=== PATIENT | female | born 1990 | race African-American/Black ===

== ENCOUNTER 2025-01-05 16:01 | Emergency (ER) | payer MEDICAID, SELFPAY ==
[2025-01-05 16:03] VITALS: BP 172/108; PULSE 84; RESP 18; TEMP 36.9; O2SAT 96; BMI 50.2
--- NOTE | 2025-01-05 16:16 | ED.VIS.FALL ---
HPI HPI - Fall History of Present Illness Chief Complaint: Fall Informant: patient Occured/Mechanism Occurred: Today Mechanism/Context: Yes same level fall and Yes slip Usually ambulates: Without assistance Pain/Injury Location: Right lower ribs and lower thoracic/upper lumbar spine Quality of Pain: Aching Worsened by: Sitting up Relieved by: Laying flat Associated Symptoms Associated Symptoms: Positive for Inability to ambulate; Negative for Parasthesias, Weakness, Loss of function, Loss of consciousness or Amnesia Narrative Narrative: Patient presents with back pain that began after a fall today. Patient states she slipped on the wet floor in her bathroom. Patient states she fell and hit her back on the edge of her bathtub. Patient thinks she hit her head but denies any loss of consciousness. Patient states she was having difficulty ambulating after the fall because of the pain. Patient denies any paresthesias or weakness. Patient states her pain is worse with sitting up. Patient states it is better with laying flat. Patient denies any radiation of the pain. Patient denies any bowel or bladder changes. Patient denies any saddle anesthesia. [facility] Medical History (Updated 01/05/25 @ 18:[address] Benjamín Naranjo, DO) Depression Bipolar 1 disorder Hypertension Fall Home Medications ?Medication ?Instructions ?Recorded ?Last Taken ?Type amlodipine 10 mg tablet 10 mg PO DAILY #30 tabs 01/05/25 Unknown Rx Allergy/AdvReac Type Severity Reaction Status Date / Time No Known Allergies Allergy Verified 01/05/25 16:03 Surgical History (Updated 01/05/25 @ 16:[address] Benjamín Naranjo, ) Hx of section Hx of cholecystectomy Social History (Updated 01/05/25 @ 16:[address] Benjamín Naranjo, DO) Smoking Status: Current every day smoker alcohol intake: current alcohol intake frequency: holidays/special occasions only substance use type: marijuana ROS ROS ED Constitutional Constitutional ED: Denies chills or fever(s) Eyes Eyes: Denies blurry vision or change in vision ENT ENT ED: Reports rhinorrhea; Denies sore throat Cardiovascular Cardiovascular: Denies chest pain or palpitations Respiratory/Chest Respiratory/Chest: Reports dyspnea; Denies cough Gastrointestinal Gastrointestinal: Denies nausea or vomiting Genitourinary Genitourinary ED: Denies dysuria or hematuria Musculoskeletal Musculoskeletal: Reports back pain; Denies neck pain Integumentary Denies abscess or rash Neurologic Neurologic: Denies headache(s) or weakness Allergic/Immunologic Allergic/Immunologic ED: Denies mouth swelling or urticaria EXAM Physical Exam Const Vital Signs: 01/05/25 16:03 01/05/25 16:57 Temperature 98.4 F Temperature Source Oral Pulse Rate 84 Respiratory Rate 18 Blood Pressure 172/108 H 193/130 H Blood Pressure Mean 129 151 Pulse Ox 96 Oxygen Delivery Method Room Air Positive well nourished and well developed General Appearance ED: well developed and NAD HEENT Reports normocephalic atraumatic Neck full ROM and supple Back/Spine Back/Spine Narrative: There is tenderness to palpation over the posterior right lower ribs, lower thoracic spine, upper lumbar spine. There is no bony crepitance or step-off. There is no subcutaneous emphysema palpated. Range of motion was limited in all motions of the thoracic and lumbar spine secondary to pain. Strength is 5/5 bilaterally in the lower extremities. There are no sensory deficits noted. Thoracic Spine / Upper Back: ROM limited Lumbar Spine / Lower Back: paraspinal muscle tenderness right L1 and L2 Neuro oriented x3, CN's II-XII intact bilaterally, moves all extremities, no focal motor deficits and no sensory deficits noted Blanca Coma Scale: document GCS findings Spontaneous Obeys Commands Oriented 15 Sensorium / Orientation: alert Motor Exam: strength 5/5 throughout Psych mental status grossly normal MDM MDM MDM Narrative Medical decision making narrative: Differential diagnosis includes rib fracture, contusion, muscle strain,, thoracic compression fracture, and lumbar compression fracture. X-rays of the lumbar spine will be obtained to assess for fracture. X-rays of the thoracic spine will be obtained to assess for fracture. X-rays of the right ribs will be obtained to assess for fracture. History & Record Review Additional record(s) reviewed:: No prior records Radiography Diagnostic Testing: Clinical Impression(s) from Imaging Studies Lumbar Spine X-Ray 01/05/25 17:04 IMPRESSION: No evidence of acute thoracolumbar spine fracture or malalignment. Multilevel spondylotic changes as described. Reading Location: [id number] Ribs w/Chest X-Ray 01/05/25 17:04 IMPRESSION: No acute cardiopulmonary disease. No acute fracture appreciated. Reading Location: [facility] Thoracic Spine X-Ray 01/05/25 17:04 IMPRESSION: No evidence of acute thoracolumbar spine fracture or malalignment. Multilevel spondylotic changes as described. Reading Location: [facility] X-rays of the right ribs were obtained. There are 3 views. On my independent interpretation, there is no rib fracture. There is no evidence of pneumothorax. Radiologist also interpreted the x-rays and agrees. X-rays of the thoracic spine were obtained. There are 3 views. On my independent interpretation, there is no acute fracture or spondylolisthesis. There are some degenerative changes noted. Radiologist also interpreted the x-rays and agrees. X-rays of the lumbar spine were obtained. There are 2 views. On my independent interpretation, there is no acute fracture or spondylolisthesis. There are some degenerative changes noted. Radiologist also interpreted the x-rays and agrees. Treatment and Re-Evaluation Narrative: Patient was given a dose of morphine. Patient was also given a dose of labetalol. Patient's blood pressure improved to 149/139. Patient was findings. Patient was instructed take Tylenol or ibuprofen as needed for pain. Patient was given a prescription for amlodipine. Patient was given a referral for primary care physician for follow-up care in 5 to 7 days. Patient was instructed to return if worse in any way. Patient understood and was agreeable with the plan. All questions were answered. Discharge Plan Triage Chief Complaint: Fall ED Provider: Benjamín Naranjo Dx/Rx/DC Orders Clinical Impression: Contusion of rib on right side, Hypertension, Fall Instructions: ED High Blood Pressure Hypertension, ED Bruise, Rib Prescriptions: New amlodipine 10 mg tablet 10 mg PO DAILY Qty: 30 0RF Primary Care Provider: Care Physician,No Primary Referrals: Cody Palmer MD [Med Staff - [employer]] - 3-5 Days NOT,DEFINED [Non-Staff] - Print Language: Luxembourger Disposition Disposition: Home, Self Care
[2025-01-05 16:57] VITALS: BP 193/130
--- OUTSIDE RECORDS SUMMARY | 2025-01-05 16:59 | XMS RPT_ITS | CCD ---
Author Organization [place] [employer] [facility] Care Team Providers Care Photographic Process Screen Maker Name Role Phone JUAN FRANCISCO HALL DO Admitting Unavailable JUAN FRANCISCO HALL DO Attending Unavailable JUAN FRANCISCO HALL DO Primary Care Unavailable YUNIELERERARNOLDO [employer] DIRECTOR Consulting Unavailable UNGERER, ARNOLDO [employer] DIRECTOR Referring Unavailable PROVIDER, UNKNOWN Consulting Unavailable DELIA MARES MD Admitting Unavailable DELIA MARES MD Attending Unavailable DELIA MARES MD Primary Care Unavailable UNGERER, ARNOLDO [employer] DIRECTOR Consulting Unavailable UNGERER, ARNOLDO [employer] DIRECTOR Referring Unavailable PROVIDER, UNKNOWN Consulting Unavailable UNGERER, ARNOLDO [employer] DIRECTOR Admitting Unavailable UNGERER, ARNOLDO [employer] DIRECTOR Attending Unavailable UNGERERARNOLDO [employer] DIRECTOR Primary Care Unavailable UNGERER, ARNOLDO [employer] DIRECTOR Consulting Unavailable PROVIDER, UNKNOWN Consulting Unavailable Problems Problem Classification Problem Date Documented Da te Episodic/Chronic Other screening for suspected conditions (not mental disorders or infectious disease) (1 source) Encounter for screening for malignant neoplasm of vagina; Translations: [Encounter for screening for malignant neoplasm of vagina] Onset: 11-15-2023 Episodic Results Test Name Value Interpretation Reference Range Facility CBC + DIFFon 05-28-2024 Baso # 0.00 x10EE3/UL Normal 0.00 - 0.10 [facility] Comment on above: Performed By: #### 2 [id number] #### [place] [id number] Basophils/100 WBC (Bld) 0.1 % Normal 0.0 - 2.0 [facility] Comment on above: Performed By: #### 2 39405 #### [place] [address] CBC + DIFF Normal [facility] Comment on above: Result Comment: CBC- COMPLETE BLOOD COUNT Performed By: #### 2 90763 #### [facility],[address] [place] [address] EO # 0.04 x10EE3/UL Normal 0.00 - 0.50 [facility] Comment on above: Performed By: #### 2 54049 #### [facility],[address] [place] [address] Eosinophils/100 WBC (Bld) 0.8 % Normal 0.0 - 7.0 [facility] Comment on above: Performed By: #### 2 10969 #### [facility],[address] [place] [address] Erythrocyte distribution width (RBC) [Ratio] 16.0 % High 12.0 - 15.6 [facility] Comment on above: Performed By: #### 2 27444 #### [facility],[address] [place] [address] Hematocrit (Bld) [Volume fraction] 35.3 % Normal 34.0 - 46.0 [facility] Comment on above: Performed By: #### 2 90273 #### [facility],[address] [place], [place] [id number] Hemoglobin (Bld) [Mass/Vol] 11.0 g/dL Low 12.0 - 16.0 [facility] Comment on above: Performed By: #### 2 98240 #### [facility],[address] [place] [address]10 Lymph # 1.86 x10EE3/UL Normal 0.80 - 2.80 [facility] Comment on above: Performed By: #### 2 40307 #### [facility],[address] [place], [place] [id number] Lymphocytes/100 WBC (Bld) 37.3 % Normal 20.0 - 45.0 [facility] Comment on above: Performed By: #### 2 86349 #### [facility],[address] [place] [address] MANUAL DIFF N/A Normal [facility] Comment on above: Performed By: #### 2 17048 #### [facility],[address] [place] [address] MCH (RBC) [Entitic mass] 23 pg Low 27 - 33 [facility] Comment on above: Performed By: #### 2 95120 #### [facility],[address] [place] [address] MCHC 31 X10 3 Low 32 - 36 [facility] Comment on above: Performed By: #### 2 48271 #### [facility],[address] [place] [address] MCV (RBC) [Entitic vol] 73 fL Low 80 - 99 [facility] Comment on above: Performed By: #### 2 67928 #### [facility],[address] [place] [address] Creek # 0.23 x10EE3/UL Normal 0.20 - 1.00 [facility] Comment on above: Performed By: #### 2 13588 #### [facility],[address] [place] [address] MONOS % 4.7 % Normal 0.0 - 10.0 [facility] Comment on above: Performed By: #### 2 18408 #### [facility],[address] [place] [address] Morphology Osbaldo (Bld) [Interp] N/A Normal [facility] Comment on above: Performed By: #### 2 03969 #### [facility],[address] [place] [address] Neut # 2.85 x10EE3/UL Normal 1.50 - 7.10 [facility] Comment on above: Performed By: #### 2 44910 #### [facility],[address] [place], [place] [id number] Neutrophils/100 WBC (Bld) 57.1 % Normal 46.0 - 76.0 [facility] Comment on above: Performed By: #### 2 27647 #### [facility],[address] [place] [address]4797 PLATELET 275 x10EE3/UL Normal 150 - 450 [facility] Comment on above: Performed By: #### 2 74899 #### [facility],[address] [place] [address]00 Platelet mean volume (Bld) [Entitic vol] 8.5 fL Normal 6.6 - 10.5 [facility] Comment on above: Result Comment: AUTO MATED DIFFERENTIAL Performed By: #### 2 92618 #### [facility],[address] [place] [address] 45587 RBC 4.86 x 10EE6/UL Normal 4.10 - 5.30 [facility] Comment on above: Performed By: #### 2 14523 #### [facility],[address] [place] [address]53 WBC 5.0 x 10EE3/UL Normal 4.5 - 10.8 [facility] Comment on above: Performed By: #### 2 59611 #### [facility],[address] [place] [address] 28355 CMP with eGFRon 05-28-2024 AGE 33 years Normal [facility] Comment on above: Performed By: #### 2 44335 ####[facility],[address] [place] [address] 60446 Albumin [Mass/Vol] 3.7 g/dL Normal 3.4 - 5.0 [facility] Comment on above: Performed By: #### 2 40420 ####[facility],[address] [place] [address] 52932 Albumin/Globulin [Mass ratio] 0.9 {ratio} Normal 0.9 - 1.6 [facility] Comment on above: Performed By: #### 2 01697 ####[facility],[address] [place] [address] 22414 ALK PHOS 65 U/L Normal 46 - 116 [facility] Comment on above: Performed By: #### 2 63230 ####[facility],[address] [place] [address] 87287 ALT [Catalytic activity/Vol] 14 U/L Low 16 - 63 [facility] Comment on above: Performed By: #### 2 54933 ####[facility],[address] [place] [address] 20706 Anion gap [Moles/Vol] 11 mmol/L Normal 10 - 20 [facility] Comment on above: Performed By: #### 2 65051 ####[facility],[address] [place] [address] 49772 AST [Catalytic activity/Vol] 26 U/L Normal 13 - 39 [facility] Comment on above: Performed By: #### 2 76682 ####[facility],[address] [place] [address] 35781 B/C RATIO 6 ratio Normal 0 - 30 [facility] Comment on above: Performed By: #### 2 25687 ####[facility],[address] [place] [address] 96070 Bilirubin [Mass/Vol] 0.9 mg/dL Normal 0.2 - 1.0 [facility] Comment on above: Performed By: #### 2 47976 ####[facility],[address] [place] [address] 51622 Calcium [Mass/Vol] 8.8 mg/dL Normal 8.5 - 10.1 [facility] Comment on above: Performed By: #### 2 99919 ####[facility],[address] [place] [address] 02479 Chloride [Moles/Vol] 103 mmol/L Normal 98 - 107 [facility] Comment on above: Performed By: #### 2 23860 ####[facility],[address] [place] [address] 00086 CMP with eGFR Normal [facility] Comment on above: Result Comment: COMP REHENSIVE METABOLIC PANEL Performed By: #### 2 17562 ####[facility],[address] [place] [address] 59086 CO2 [Moles/Vol] 25.1 mmol/L Normal 21.0 - 32.0 [facility] Comment on above: Performed By: #### 2 96882 ####[facility],[address] [place] [address] 52501 Creatinine [Mass/Vol] 1.06 mg/dL High 0.55 - 1.02 [facility] Comment on above: Performed By: #### 2 73279 ####[facility],[address] [place] [address] 73188 eGFR 59 ML/MINUTE Low 60 - 999 [facility] Comment on above: Performed By: #### 2 81033 ####[facility],[address] [place] [address] 87861 GFR/1.73 sq M.predicted among non-blacks MDRD (S/P/Bld) [Vol rate/Area] mL/min/{1.73_m2} Normal 60 - 999 [facility] Comment on above: Result Comment: ACCO RDING TO THE NATIONAL KIDNEY DISEASE EDUCATION PROGRAM(NKDE), A NORMAL eGFR IS A VALUE GREATER THAN OR EQUAL TO 60 ML/MIN/1.73 SQ METERS. CHRONIC KIDNEY DISEASE: <60mL/MIN/1.73 SQ METERS KIDNEY FAILURE: <15mL/MIN/1.73 SQ METERS THIS TEST SHOULD ONLY BE USED FOR PATIENTS 18 YEARS OF AGE AND OLDER. Performed By: #### 2 41736 ####[facility],[address] [place] [address] 43680 Globulin (S) [Mass/Vol] 4.0 g/dL High 1.5 - 3.8 [facility] Comment on above: Performed By: #### 2 91378 ####[facility],[address] [place] [address] 04772 Glucose [Mass/Vol] 100 mg/dL Normal 74 - 106 [facility] Comment on above: Performed By: #### 2 67656 ####[facility],[address] [place] [address] 26079 Potassium [Moles/Vol] 3.5 mmol/L Normal 3.5 - 5.1 [facility] Comment on above: Performed By: #### 2 64180 ####[facility],[address] [place] [address] 85785 Protein [Mass/Vol] 7.7 g/dL Normal 6.4 - 8.2 [facility] Comment on above: Performed By: #### 2 70421 ####[facility],[address] [place] [address] 41293 Sodium [Moles/Vol] 136 mmol/L Normal 136 - 145 [facility] Comment on above: Performed By: #### 2 34084 ####[facility],[address] [place] [address] 81836 Urea nitrogen [Mass/Vol] 6 mg/dL Low 7 - 18 [facility] Comment on above: Performed By: #### 2 43184 ####[facility],[address] [place] [address] 08151 ED MED ADMINISTRATION DETAIL on 05-28-2024 ED MED ADMINISTRATION DETAIL Alcohol Still Operator Medication Administration Record [address] [address] [id number] 05/28/2024 [id number] Sex[facility] Female : 1990 Age: 33y MEASUREMENTS: Wt: 152.0 kg, Ht/[place]: 65.0 in, BMI: 55.75 ALLERGIES: No known drug allergies Medication Ordered Medication Administration Date/Time Pantoprazole 09:59 05/28 Pantoprazole (Protonix) IVP 40 mg given via Site# 1. Given (Protonix) IVP 40 Allergies verified and confirmed 5 rights. IV patency established. IV 09:59 05/28/2024 mg (NOW x1) site checked: no pain, redness, or swelling. IV flushed thoroughly Sandra Funez R.N. pre-medication administration. IVP given by nurse. Information Scanned reviewed with patient including reason for taking this medication. - 10:00 Sandra Funez R.N. 1 of 1 Normal [facility] ED NURSES CLINICAL NOTEon ED NURSES CLINICAL NOTE Nurse Narrative Nurse Clinical Narrative [facility] [address] [place] [address] [id number] 05/28/2024 Patient: YOSEF ZARAGOZA Sex: Female : 1990 Age: 33y Disposition: Discharge to Home Disposition Decision Time: 11:38 05/28/2024 Departure Time: 12:03 05/28/2024 TRIAGE Arrived by private vehicle. Historian: patient. Primary physician (Sissy). Triage time: 08:56 05/28/2024. Acuity: LEVEL 3. Chief Complaint: ABDOMINAL PAIN, NAUSEA and DIARRHEA and URINARY FREQUENCY and FLANK PAIN. Onset. (4 days ago). ( Pt was taking a shower and felt like she pulled something in her lower right back. It has wrapped around to the front now.). SEPSIS SCREEN: NEGATIVE. SIRS criteria negative. No possible sources of infection. -- 09:05/28/24 CHARLES Funez R.N. 09:03 05/28/24. BP: 159/100 MAP: 120. HR: 90. RR: 18. O2 saturation: 98% Temperature: 98.5 F. Pain level now 11/28. -- 09:05/28/24 CHARLES Funez R.N. Measurements: 09:05/28/24 Wt: 152.0 kg, Ht/[place]: 65.0 in, BMI: 55.75 -- 09:05/28/24 CHARLES Funez R.N. Medications: escitalopram 20 mg tablet: 1 tablet once a day. -- 09:05/28/24 CHARLES Funez R.N. gabapentin 400 mg capsule -- 09:07 05/28/24 CHARLES Funez R.N. 1 of 4 Nurse Narrative MELATONIN 5MG TAB: TAKE 1/2 TO 2 TABLETS BY MOUTH AT BEDTIME NEEDED FOR SLEEP. -- 09:07 05/28/24 CHARLES Funez R.N.Updated through eRx -- 09:05/28/24 CHARLES Funez R.N. trazodone 50 mg tablet -- 09:07 05/28/24 CHARLES Funez R.N.Updated through eRx -- 09:05/28/24 CHARLES Funez R.N. MELATONIN 5MG TAB: 1 tablet every night as needed. -- 09:05/28/24 CHARLES Funez R.N. trazodone 50 mg tablet: 1 tablet every night as needed. -- 09:09 05/28/24 CHARLES Funez R.N. Allergies: no known drug allergies -- 08:58 05/28/24 CHARLES Funez R.N. Problems: Depression -- 08:59 05/28/24 CHARLES Funez R.N. Anxiety disorder -- 08:59 05/28/24 CHARLES Funez R.N. ADDITIONAL SURGERIES: -- 08:59 05/28/24 CHARLES Funez R.N. Cholecystectomy -- 09:00 05/28/24 CHARLES Funez R.N. History 08:56 05/28/24. PAST MEDICAL HX: Last normal menstrual period- May 04. SOCIAL HX: Heavy tobacco smoker (cigarette)- 1-2 packs per day. Occasional alcohol use. Occasional drug use: marijuana. The patient has not traveled outside the [place] Infectious disease exposure: No infectious disease exposure. ABUSE ASSESSMENT: The patient answered yes to the question(s) Do you feel safe in your home? and no to the question(s) Are you afraid to go home?. SELF HARM ASSESSMENT: Self harm assessment was performed. The patient answered no to the question(s) Have you recently felt down, depressed, or hopeless? and Do you have thoughts of harming or killing yourself?. FALL RISK ASSESSMENT: Fall risk assessment completed. No risk factors identified. -- :03 05/28/24 CHARLES Funez R.N. 2 of 4 Nurse Narrative Interventions 08:56 05/28/24. Advanced care plan discussed with patient. Patient does not have advanced directive. -- 09:03 05/28/24 CHARLES Funez R.N. PHYSICAL ASSESSMENT 09:32 05/28/24. Ambulatory to room. ( Pt states she was taking a shower 4 days ago and pulled something in her back, now it has wrapped around her right flank area. Pt is tender to palpation.). GENERAL / NEURO / PSYCH: Alert. Oriented X 4. RESPIRATORY: Respirations not labored. CVS: Normal sinus rhythm noted. GI / : The patient has had nausea and diarrhea. Abdominal tenderness. Guarding present in the right side of the abdomen and right lower quadrant (flank into her back). -- 09:47 05/28/24 CHARLES Funez R.N. NURSING PROGRESS NOTES 09:22 05/28/24. Call light placed in reach. Side rails up x 2. Bed placed in lowest position. Brakes of bed on. -- 09:47 05/28/24 CHARELS Funez R.N. 09:35 05/28/24. Site #1 started via IV in the right antecubital space with a 20g angiocath with aseptic technique and good blood return; 1 attempt. Blood drawn: rainbow set tube(s). Labeled in the presence of the patient and sent to the lab. Saline lock flushed with 5 mL saline. -- 09:44 05/28/24 CHARLES Funez R.N. 09:59 05/28/24. Pantoprazole (Protonix) IVP 40 mg given via Site# 1. Allergies verified and confirmed 5 rights. IV patency established. IV site checked: no pain, redness, or swelling. IV flushed thoroughly pre-medication administration. IVP given by nurse. Information reviewed with patient including reason for taking this medication. -- 10:00 05/28/24 CHARLES Funez R.N. 10:02 05/28/24. The patient reports no complaints and the patient is calm and resting quietly. -- 10:27 05/28/24 CHARLES Funez R.N. 10:18 05/28/24. PO Challenge performed with water (so patient can try to provide a urine). -- 10:24 05/28/24 (more content not included)... Normal [facility] ED ORDER SHEET (CPOE ONLY)on 05-28-2024 ED ORDER SHEET (CPOE ONLY) Order Sheet Order Sheet [facility] [address] [place] [address] [id number] 05/28/2024 Patient: YOSEF ZARAGOZA Sex: Female : 1990 Age: 33y MEASUREMENTS: Wt: 152.0 kg, Ht/[place]: 65.0 in, BMI: 55.75 ALLERGIES: No known drug allergies MEDICATION/IV/DRIP/FL UID ORDERS Order Description Priority Entered Acknowledged Completed Pantoprazole (Protonix) IVP40 09:18 05/28/2024 09:43 10:00 mg (NOW x1) Delia Mares M.D. 05/28/2024 05/28/2024 Sandra Sun, Navya.Isabella. R.N. LAB ORDERS Order Description Priority Entered Acknowledged Collected Completed CBC w Diff Stat Stat 09:16 05/28/2024 09:17 05/28/2024 09:17 05/28/2024 Sandra Zhang Natalie [place]oder, M.D. R.N. R.N. CMP Stat Stat 09:16 05/28/2024 09:17 05/28/2024 09:17 05/28/2024 Sandra Zhang Natalie [place], M.D. R.N. R.N. Lipase Stat Stat 09:16 05/28/2024 09:17 05/28/2024 09:17 05/28/2024 Sandra Zhang Natalie Yoder, 1 of 2 Order Sheet Juarez Gallego. R.N. EKG - ED Stat Stat 09:16 05/28/2024 09:17 05/28/2024 09:17 05/28/2024 Sandra Zhang Natalie [place], M.D. R.NRaquel RRaquelN. Urinalysis Stat Stat 09:16 05/28/2024 09:17 05/28/2024 09:17 05/28/2024 Sandra Zhang Natalie [place]oder, M.D. R.N. RRaquelN. Urine - HCG Stat 09:16 05/28/2024 09:17 05/28/2024 09:17 05/28/2024 Stat Sandra Zhang Natalie [place], M.D. R.NRaquel RRaquelNRaquel DIAGNOSTIC STUDY ORDERS Order Description Priority Entered Acknowledged Completed STAFF ORDERS Order Description Priority Entered Acknowledged Collected Completed IV Saline Lock 09:18 05/28/2024 09:43 05/28/2024 10:03 05/28/2024 Sandra Zhang Natalie [place], M.D. R.N. RRaquelNRaquel [Electronically signed by Delia Mares M.D. (05/28/2024 11:51 EST)] 2 of 2 Normal [facility] ED PHYSICIAN CLINICAL REPORT on 05-28-2024 ED PHYSICIAN CLINICAL REPORT Narrative Physician Clinical Narrative [address] [address] [id number] 05/28/2024 Patient: YOSEF ZARAGOZA Sex: Female : 1990 Age: 33y Measurements Wt: 152.0 kg, Ht/[place]: 65.0 in, BMI: 55.75 Initial Vital Sign Measured Time BP MAP HR RR O2Sat ETCO2 Temp Pain GCS RTS 09:03 05/28/2024 159/100 120 90 18 98% 98.5 F 7 Time Seen: 08:56 05/28/2024. Arrived- By private vehicle. Historian- patient. HISTORY OF PRESENT ILLNESS Chief Complaint: ABDOMINAL PAIN and FLANK PAIN. (Patient has started having pain a couple of days ago.). No nausea, loss of appetite, vomiting or diarrhea. (She noticed pain when she was showering. She thinks she may have just moved wrong. It started in the right back flank area but now it is coming around to the front in the epigastric area. A couple of days ago she went to a event where she used crank. She also smoked a blunt prior to coming in today. She has some slight nausea. She states it hurts when she stands twists or bends. No urinary symptoms. No fever. She has had her gallbladder out. She denies any chest pain or shortness of breath. Has not had a cough. She is eating and drinking without difficulty.). REVIEW OF SYSTEMS RESPIRATORY: No difficulty breathing. CVS: No chest pain. THROAT: No sore throat. NEUROLOGICAL: No headache. CONSTITUTIONAL: No fever or chills. : No pain with urination or urinary frequency. Denies current . GI: No constipation. 1 of 11 Narrative PAST HISTORY See nurses notes. Anxiety disorder Depression Surgeries: Cholecystectomy Medications: escitalopram 20 mg tablet: 1 tablet once a day. gabapentin 400 mg capsule MELATONIN 5MG TAB: 1 tablet every night as needed. trazodone 50 mg tablet: 1 tablet every night as needed. Allergies: no known drug allergies SOCIAL HISTORY Smoker- current status unknown. Alcohol use. Drug use. ADDITIONAL NOTES The nursing notes have been reviewed. PHYSICAL EXAM Vital Signs: Have been reviewed. Appearance: Alert. No acute distress. Eyes: Pupils equal, round and reactive to light. Eyes normal inspection. ENT: Ears normal. Nose normal. Neck: Normal inspection. CVS: Normal heart rate. Heart sounds normal. Respiratory: No respiratory distress. Painless inspiration. Breath sounds normal. Chest nontender. Abdomen: Soft. Tenderness (Mild tenderness epigastric area). No organomegaly. No mass. Obese. 2 of 11 Narrative Back: Normal inspection. (she has some tenderness in the right back to extremely light touch. There is no rash noted). Skin: Skin warm. Normal skin color. Extremities: Extremities exhibit normal ROM. No lower extremity edema. Neuro: Oriented X 3. No motor deficit. No sensory deficit. LABS, X-RAYS, AND EKG 12-LEAD EKG: No acute ischemia. Prolonged QT. The EKG appears to be a good tracing. Laboratory Tests: CBC + DIFF Final KINGS: 05/28/2024 09:25:00 EST MsgRcvd: 05/28/2024 09:43 EST Lab Test Result Reference Status Received Comments 05/28/2024 09:43 CBC-COMPLETE CBC + DIFF Final EST BLOOD COUNT 05/28/2024 09:43 WBC 5.0 x 10/UL 4.5 - 10.8 Final EST 05/28/2024 09:43 RBC 4.86 x 10/UL 4.10 - 5.30 Final EST 11.0 g/dl 05/28/2024 09:43 HEMOGLOBIN 12.0 - 16.0 Final Below low normal EST 05/28/2024 09:43 HEMATOCRIT 35.3 % 34.0 - 46.0 Final EST 73 fl 05/28/2024 09:43 MCV 80 - 99 Final Below low normal EST 23 pg 05/28/2024 09:43 MCH 27 - 33 Final Below low normal EST 31 X10 3 05/28/2024 09:43 MCHC 32 - 36 Final Below low normal EST 3 of 11 Narrative 16.0 % 05/28/2024 09:43 RDW/CV 12.0 - 15.6 Final Above high normal EST 05/28/2024 09:43 PLATELET 275 x10/UL 150 - 450 Final EST 05/28/2024 09:43 AUTOMATED MPV 8.5 fl 6.6 - 10.5 Final EST DIFFERENTIAL 05/28/2024 09:43 NEUT % 57.1 % 46.0 - 76.0 Final EST 05/28/2024 09:43 LYMPH % 37.3 % 20.0 - 45.0 Final EST 05/28/2024 09:43 MONOS % 4.7 % 0.0 - 10.0 Final EST 05/28/2024 09:43 EO % 0.8 % 0.0 - 7.0 Final EST 05/28/2024 09:43 BASO % 0.1 % 0.0 - 2.0 Final EST 05/28/2024 09:43 Lymph # 1.86 x10/UL 0.80 - 2.80 Final EST 05/28/2024 09:43 Neut # 2.85 x10/UL 1.50 - 7.10 Final EST 05/28/2024 09:43 Creek # 0.23 x10/UL 0.20 - 1.00 Final EST 05/28/2024 09:43 EO # 0.04 x10/UL 0.00 - 0.50 Final EST 05/28/2024 09:43 Baso # 0.00 x10/UL 0.00 - 0.10 Final EST 05/28/2024 09:43 MANUAL DIFF N/A New Order EST 4 of 11 Narrative 05/28/2024 09:43 MORPHOLOGY N/A New Order EST CMP with eGFR Final KINGS: 05/28/2024 09:25:00 EST MsgRcvd: 05/28/2024 10:17 EST Lab Test Result Reference Status Received Comments COMPREHENSIVE 05/28/2024 CMP with eGFR Final METABOLIC 10:17 EST PANEL 05/28/2024 (more content not included)... Normal [facility] ED SUPER BILLon 05-28-2024 ED SUPER BILL [address] [address] [id number] 05/28/2024 Patient: YOSEF ZARAGOZA Sex: Female : 1990 Age: 33y Item Facility Professional Category Description Code Code Quantity Fee Total Nurse/E/M EMERGENCY 121250 1 $0.00 $0.00 DEPARTMENT VISIT HIGH/URGENT SEVERITY (67714-61) Nurse/IV/IM/Infusions IVP initial 918334 1 $0.00 $0.00 (62226) Grand Total $0.00 Providers Delia Mares M.D. Chief Complaint ABDOMINAL PAIN and FLANK PAIN. Principal Diagnosis Abdominal pain. Epigastric abdominal pain of unknown cause. 1 of 2 [facility] Hypertension. hypertension. ICD-10 Codes R10.9: Unspecified abdominal pain R10.13: Epigastric pain I10: Essential (primary) hypertension 2 of 2 Normal [facility] ED VISIT SUMMARYon ED VISIT SUMMARY Visit Overview Visit Overview [address] [address] [id number] 05/28/2024 Patient: YOSEF ZARAGOZA Sex: Female : 1990 Age: 33y 05/28/2024 12:07 PM EST ED Arrival:08:54 05/28/2024 EST Status:not Recent Travel:no Language:eng Adv Directive:No Isolation Status: Ethnicity:N Fall Risk:no risk Infectious Disease Exposure:no Measurements:5'5 / 165.1 Self-Harm Status:risk Sepsis Screen:negative cm 335.0 lb / 152.0 kg Chief Complaint:ABDOMINAL PAIN, DIARRHEA, FLANK PAIN, NAUSEA, URINARY FREQUENCY, (4 days ago), (Pt was taking a shower and felt like she pulled something in her lower right back. It has wrapped around to the front now. ), and (Ungerer) ALLERGIES No Known Drug Allergies HOME MEDICATIONS escitalopram 20 mg tablet: 1 tablet once a day. 1 of 3 Visit Overview gabapentin 400 mg capsule MELATONIN 5MG TAB: 1 tablet every night as needed. trazodone 50 mg tablet: 1 tablet every night as needed. PAST MEDICAL HISTORY / PROBLEMS Anxiety disorder Depression Last normal menstrual period- May 04 See nurses notes PAST SURGICAL HISTORY Cholecystectomy SOCIAL HISTORY Smoking status: Yes Alcohol use: Yes Drug use: Yes ED COURSE MEDICATIONS GIVEN IN EMERGENCY DEPARTMENT 09:59 05/28/24 Pantoprazole (Protonix) IVP 40 mg IV SITE INFORMATION INTAKE OUTPUT REASSESMENT (most recent) 10:02 05/28/24. The patient reports no complaints and the patient is calm and resting quietly. VITAL SIGNS First Vitals Last Vitals Temp 09:03 05/28/24 98.5 F Temp 09:03 05/28/24 98.5 F 2 of 3 Visit Overview First Vitals Last Vitals BP 09:03 05/28/24 159/100 BP 09:03 05/28/24 159/100 HR 09:03 05/28/24 90 HR 09:03 05/28/24 90 RR 09:03 05/28/24 18 RR 09:03 05/28/24 18 O2 Sat 09:03 05/28/24 98% O2 Sat 09:03 05/28/24 98% Pain 09:03 05/28/24 7 Pain 09:03 05/28/24 7 ETCO2 09:03 05/28/24 ETCO2 09:03 05/28/24 GCS 09:03 05/28/24 GCS 09:03 05/28/24 RTS 09:03 05/28/24 RTS 09:03 05/28/24 PROCEDURES NURSING INTERVENTIONS LABS / STUDIES LABS / STUDIES ORDERED CBC w Diff CMP EKG - ED Lipase Urinalysis Urine - HCG CLINICAL IMPRESSION ABDOMINAL PAIN EPIGASTRIC ABDOMINAL PAIN OF UNKNOWN CAUSE HYPERTENSION POSSIBLE ACUTE GASTRITIS 3 of 3 Normal [facility] ED VITALS FLOW SHEETon 05-28 ED VITALS FLOW SHEET Vit[place] [address] [phone] 05/28/2024 Patient: YOSEF ZARAGOZA Sex: Female : 1990 Age: 33y Measurements Wt: 152.0 kg, Ht/[place]: 65.0 in, BMI: 55.75 Measured Time BP MAP HR RR O2Sat ETCO2 Temp Pain GCS RTS 09:03 05/28/2024 159/100 120 90 18 98% 98.5 F 7 1 of 1 Normal [facility] LIPASEon 05-28-2024 Lipase [Catalytic activity/Vol] 46.0 U/L Normal 15.0 - 78.0 [facility] Comment on above: Result Comment: *PLE ASE NOTE THAT RANGES FOR LIPASE HAVE CHANGED OF 05/19/23 DUE TO AN ASSAY UPDATE BY THE LIQUOR DEPARTMENT MANAGER.THE NEW ASSAY RANGE IS 6-250 U/L, WITH A REFERENCE RANGE OF 16-77 U/L. Performed By: #### 2 [id number] #### [facility],[address] [place], [place] [id number] URINEon 05-28-2024 Beta HCG ( test) Ql (U) Negative Normal NEGATIVE [facility] Comment on above: Performed By: #### 2 70117 ####[facility],[address] [place], [place] [phone] EXTERNAL QC DONE? YES Normal [facility] Comment on above: Performed By: #### 2 85067 ####[facility],[address] [place] [address] INTERNAL QC PASS Normal [facility] Comment on above: Performed By: #### 2 39530 ####[facility],[address] [place] [address] URINALYSISon 05-28-2024 Amorphous NONE Normal [facility] Comment on above: Performed By: #### 2 37163 ####[facility],[address] [place] [address] Bacteria 1+ Normal [facility] Comment on above: Performed By: #### 2 79984 ####[facility],[address] [place] [address] Bilirubin Ql (U) Negative Normal NORMAL: NEGATIVE [facility] Comment on above: Performed By: #### 2 88064 ####[facility],[address] [place] [address]71 Casts NONE Normal [facility] Comment on above: Performed By: #### 2 98866 ####[facility],[address] [place], [place] [id number] Clarity (U) clear Normal NORMAL: CLEAR [facility] Comment on above: Performed By: #### 2 62492 ####[facility],[address] [place] [address] Color (U) airam Normal NORMAL: YELLOW [facility] Comment on above: Performed By: #### 2 04751 ####[facility],[address] [place] [address] Crystals LM Nom (Urine sed) NONE Normal [facility] Comment on above: Performed By: #### 2 37784 ####[facility],[address] [place] [address] Epi Cells NONE Normal [facility] Comment on above: Performed By: #### 2 99228 ####[facility],[address] [place] [address]16 Glucose Ql (U) NORM Normal NORMAL: NORMAL [facility] Comment on above: Performed By: #### 2 96254 ####[facility],[address] [place] [address]873 Hemoglobin Ql (U) 10 Abnormal NORMAL: NEGATIVE [facility] Comment on above: Performed By: #### 2 15227 ####[facility],[address] [place] [address] 23246 Ketone 50 Abnormal NORMAL: NEGATIVE [facility] Comment on above: Performed By: #### 2 92324 ####[facility],[address] [place] [address] Leukocytes 25 Abnormal NORMAL: NEGATIVE [facility] Comment on above: Performed By: #### 2 73516 ####[facility],[address] [place] [address] Mucous 3+ Normal [facility] Comment on above: Performed By: #### 2 27928 ####[facility],[address] [place] [address] Nitrite Ql (U) Negative Normal NORMAL: NEGATIVE [facility] Comment on above: Performed By: #### 2 21576 ####[facility],[address] [place] [address] pH (U) 5 [pH] Normal NORMAL: 5.0-8.0 [facility] Comment on above: Performed By: #### 2 68467 ####[facility],[address] [place] [address] Protein Ql (U) 30 Abnormal NORMAL: NEGATIVE [facility] Comment on above: Performed By: #### 2 99295 ####[facility],[address] [place] [address] Rbc 0-5 Normal 0-3/hpf [facility] Comment on above: Performed By: #### 2 99373 ####[facility],[address] [place], [place] [id number] Sp [place] 1.025 Normal NORMAL: 1.010-1.030 [facility] Comment on above: Performed By: #### 2 26433 ####[facility],[address] [place] [address] Specimen Type R Normal [facility] Comment on above: Performed By: #### 2 17534 ####[facility],[address] [place] [address] Urinalysis dipstick W Reflex Microscopic panel (U) SEE BELOW Normal [facility] Comment on above: Result Comment: MICR OSCOPIC Performed By: #### 2 53789 ####[facility],[address] [place] [address] Urobilinog 4 Abnormal NORMAL: NORMAL [facility] Comment on above: Performed By: #### 2 31000 ####[facility],[address] [place] [address] Wbc 1-5 Normal 0-5/hpf [facility] Comment on above: Performed By: #### 2 53276 ####[facility],[address] [place] [address] Yeast NONE Normal [facility] Comment on above: Performed By: #### 2 64082 ####[facility],[address] [place] [address] FOOT COMPLETE LTon 4 FOOT COMPLETE LT [place] [address] Patient: YOSEF ZARAGOZA Phone#: : 1990 Age: 33 Gender: F Pt. Type: ER Account: [id number] Location: [facility] Ordering: JUAN FRANCISCO HALL Exam Date: 12/17/2023/21:14 Family Phys: ARNOLDO MEJIASNavya Charge Code: [id number] Physician: [place] Order #: [id number] Dose#: PROCEDURE: X-RAY FOOT LT COMPLETE MIN 3 VIEWS COMPARISON: None. INDICATIONS: Foot injury. FINDINGS: BONES: No significant arthropathy or acute abnormality. A small calcaneal spur is present. SOFT TISSUES: Negative. No visible soft tissue swelling. EFFUSION: None visible. OTHER: Negative. CONCLUSION: No acute disease. Dictated by: Janna Viveros MD on 12/18/2023 at 9:59 Approved by: Janna Viveros MD on 12/18/2023 at 9:59 Normal [facility] Outdoor Guide Cytology Reporton 2023 Outdoor Guide Cytology Report . Pathology Reports Accession: Collected Date/Time: Received Date/Time: Pathologist: [id number] 11/15/2023 14:52 EDT 11/16/2023 18:00 EDT Outdoor Guide Cytology Report SPECIMEN: Specimen Description: Liquid Prep w/ HPV Specimen: Cervical Screening or Diagnostic: Screening RELEVANT HISTORY: LMP: [id number] [id number] SPECIMEN ADEQUACY: SATISFACTORY FOR EVALUATION Endocervical/Transfor mational zone component absent/insufficient INTERPRETATION/RESULT S: NEGATIVE FOR INTRAEPITHELIAL LESION OR MALIGNANCY HIGH RISK HPV TESTING: Event Code Result HPV Interp See Interp HPVN HPV Interp Text: High Risk HPV Typing: NEGATIVE HPV types 16, 18, 31, 33, 35, 39, 45, 51, 52, 56, 58, 59, 66 and 68 DNA were undetectable or below the pre-set threshold. The jeremiah High-Risk HPV DNA Test is not intended for use as a screening device for Pap normal women under age 30 and is not intended to substitute for regular Pap screening. The jeremiah High-Risk HPV DNA Test is designed to augment existing methods for the detection of cervical disease and should be used in conjunction with clinical information derived from other diagnostic and screening tests, physical examinations and full medical history in accordance with appropriate patient management procedures. NOTE: A negative result does not preclude the presence of HPV infection because results depend on adequate specimen collection, absence of inhibitors and sufficient DNA to be detected. As of: 11/21/23 14:12 EDT COMMENT: This Pap Test was successfully processed and evaluated with the assistance of the [employer] ThinPrep Test Imaging System. Pathology Reports Accession: Collected Date/Time: Received Date/Time: Pathologist: [id number] 11/15/2023 14:52 EDT 11/16/2023 18:00 EDT Electronically Signed by Pathology report verified by [facility] Screened by: KK Electronically signed by Mirela MOSHER (ASCP) Sign-Out Date: 11/21/2023 14:12 Performing Lab: [facility], [address] [place] [address] Pathology Dept Disclaimer The Pap test is a screening test for cervical cancer. As evidenced by published data, it is subject to both inherent false negative and false positive results. Your patient's results should be interpreted in context with pertinent clinical history including gynecological examination. Normal [facility] [place] HPVon 11-21-2023 HPV Interp Normal See Inter HPVN [facility] Comment on above: Order Comment: Order placed by AP_HPV_ORDER rule from [id number] Result Comment: High Risk HPV Typing: NEGATIVE HPV types 16, 18, 31, 33, 35, 39, 45, 51, 52, 56, 58, 59, 66 and 68 DNA were undetectable or below the pre-set threshold. The jeremiah High-Risk HPV DNA Test is not intended for use as a screening device for Pap normal women under age 30 and is not intended to substitute for regular Pap screening. The jeremiah High-Risk HPV DNA Test is designed to augment existing methods for the detection of cervical disease and should be used in conjunction with clinical information derived from other diagnostic and screening tests, physical examinations and full medical history in accordance with appropriate patient management procedures. NOTE: A negative result does not preclude the presence of HPV infection because results depend on adequate specimen collection, absence of inhibitors and sufficient DNA to be detected. See [facility] HPVN Performed By: #### H PV #### [place] [address] HPV Source Cervix Normal [facility] [place] Comment on above: Order Comment: Order placed by AP_HPV_ORDER rule from [id number] Performed By: #### H PV #### [place] [id number] VAGINAL PATHOGEN DNA DIRECT PROBES[DIANA]on 11-20-2023 VAGINAL PATHOGEN DNA DIRECT PROBES[DIANA] Normal [facility] Comment on above: Result Comment: _VAG INAL PATHOGENS DNA DIRECT PROBES [CCL]_ SEE SEPARATE REPORT Performed By: #### 2 50500 ####[facility],[address] [place] [address] Outdoor Guide Cytology Reporton 2022 Outdoor Guide Cytology Report . Pathology Reports Accession: Collected Date/Time: Received Date/Time: Pathologist: [id number] 12/13/2022 11:25 EDT 12/13/2022 18:00 MD DIANA PARIS Outdoor Guide Cytology Report SPECIMEN: Specimen Description: Liquid Prep w/ HPV Specimen: vaginal Screening or Diagnostic: Screening RELEVANT HISTORY: LMP: NOT GIVEN [id number] SPECIMEN ADEQUACY: SATISFACTORY FOR EVALUATION Endocervical/Transfor mational zone component present INTERPRETATION/RESULT S: NEGATIVE FOR INTRAEPITHELIAL LESION OR MALIGNANCY ORGANISMS: Shift in wilner consistent with bacterial vaginosis SUGGESTIONS/EDUCATION AL NOTES: This case has been reviewed for 10% QA rescreen HIGH RISK HPV TESTING: Event Code Result HPV Interp See Interp HPVO * HPV Interp Text: High Risk HPV Typing is Positive: High Risk HPV Types detected, other than HPV 16 or HPV 18. Specimen is positive for the DNA of any one of, or combination of, the following high risk HPV types: 31, 33, 35, 39, 45, 51, 52, 56, 58, 59, 66, 68. HPV types 16 and 18 DNA were undetectable or below the pre-set threshold. The jeremiah High-Risk HPV DNA Test is not intended for use as a screening device for Pap normal women under age 30 and is not intended to substitute for regular Pap screening. The jeremiah High-Risk HPV DNA Test is designed to augment existing methods for the detection of cervical disease and should be used in conjunction with clinical information derived from other diagnostic and screening tests, physical examinations and full medical history in accordance with appropriate patient management procedures. NOTE: A negative result does not preclude the presence of HPV infection because results depend on adequate specimen collection, absence of inhibitors and sufficient DNA to be detected. As of: 12/22/22 12:07 EDT Pathology Reports Accession: Collected Date/Time: Received Date/Time: Pathologist: [id number] 12/13/2022 11:25 EDT 12/13/2022 18:00 MD DIANA PARIS COMMENT: This Pap Test was successfully processed and evaluated with the assistance of the [employer] Test Imaging System. Electronically Signed by Pathology report verified by [facility] Screened by: CARLY Electronically signed by DIANA MONSIVAIS MD Sign-Out Date: 12/22/2022 17:38 Performing Lab: [facility], [address] [place] [address] Pathology Dept Disclaimer The Pap test is a screening test for cervical cancer. As evidenced by published data, it is subject to both inherent false negative and false positive results. Your patient's results should be interpreted in context with pertinent clinical history including gynecological examination. Normal [facility] [place] HPVon 12-21-2022 HPV Interp Abnormal See Interp HPVN Replaced by [facility]) Comment on above: Order Comment: Order placed by AP_HPV_ORDER rule from [id number] Result Comment: High Risk HPV Typing is Positive: High Risk HPV Types detected, other than HPV 16 or HPV 18. Specimen is positive for the DNA of any one of, or combination of, the following high risk HPV types: 31, 33, 35, 39, 45, 51, 52, 56, 58, 59, 66, 68. HPV types 16 and 18 DNA were undetectable or below the pre-set threshold. The jeremiah High-Risk HPV DNA Test is not intended for use as a screening device for Pap normal women under age 30 and is not intended to substitute for regular Pap screening. The jeremiah High-Risk HPV DNA Test is designed to augment existing methods for the detection of cervical disease and should be used in conjunction with clinical information derived from other diagnostic and screening tests, physical examinations and full medical history in accordance with appropriate patient management procedures. NOTE: A negative result does not preclude the presence of HPV infection because results depend on adequate specimen collection, absence of inhibitors and sufficient DNA to be detected. See [facility] HPVO Performed By: #### H PV #### [address] [address] HPV Source Cervix Normal [facility] [place] Comment on above: Order Comment: Order placed by AP_HPV_ORDER rule from [id number] Performed By: #### H PV #### [address] [address] Hep C Ab IA w/Confon 019 Hepatitis C Ab IA NEGAT Normal Negative [facility] Reference Lab Comment on above: Performed By: #### A HCV1B #### [facility] Routine Lab [address] [place], [place] [address] #### AHAVT #### [facility] Immuno Assay [address] [place], [place] [address] Hepatitis A Ab Totalon 01-03 Hepatitis A Ab Total NEGAT Normal Negative [facility] Reference Lab Comment on above: Performed By: #### A HCV1B #### [facility] Routine Lab [address] [place] [address] #### AHAVT #### [facility] Immuno Assay [address] [place] [address] GC/Chlamydia Amplifon 2018 Chlamydia Amplif CLNEG Normal [facility] Reference Lab GC Amplification NGNEG Normal [facility] Reference Lab GC/Chlam Amp Source Vaginal Normal [facility] Reference Lab Hepatitis B Surf. Agon 09-20 Hepatitis B Surf. Ag NEGAT Normal Negative [facility] Reference Lab RPRon 09-20-2018 Reagin Ab RPR Ql (S) NR Normal Non Reactive Cl [facility] Reference Lab Rubella IgG Antibodyon 09-20 Rubella IgG Ab 10.50 Index Value Normal [facility] Reference Lab Rubella IgG Ab, Qual Positive Abnormal Negative [facility] Reference Lab GC/Chlamydia Amp, Uron 09-19 Chlamydia Amplif, Ur amplification. Normal [facility] Reference Lab GC Amplification, Ur NGNEG Normal [facility] Reference Lab Encounters Encounter Date Encounter Type Care Provider Facility Start: 05-28-2024 End: 05-28-2024 Emergency department patient visit DELIA MARES [facility] Start: 12-17-2023 End: 12-17-2023 Emergency department patient visit JUAN FRANCISCO GUERIN [facility] Start: 11-15-2023 End: 11-15-2023 ambulatory [employer] [facility] Procedures Date Procedure Procedure Detail Performing Clinician Start: 05-28-2024 Urinalysis JUAN FRANCISCO Mend[place] Comment on above: Result Comment: URIN ALYSIS Performed By: #### 2 66452 ####[facility],[address] [place] [address] Payers Date Payer Category Payer Unknown [id number] 1990 Unknown [id number] 1990 Unknown [id number] 1990 Unknown [id number] Clinical Note 05-28-2024 Note Date & Type Note Facility 05-28-2024 Note Discharge Instructio ns Discharge Summary [address] [address] [id number] 05/28/2024 Patient: YOSEF ZARAGOZA Sex: Female : 1990 Age: 33y Thank you for visiting [facility]. You have been evaluated today by Delia Mares M.D. for the following condition(s): Principal Diagnosis Abdominal pain. Epigastric abdominal pain of unknown cause. Hypertension. hypertension. INSTRUCTIONS No alcohol. Do not smoke. (your blood pressure was high today I think you need to be put back on your medication. Call your doctor to be seen as soon as possible. Medications as directed. No drugs alcohol or smoking. You may need to have further testing if your symptoms continue.). Prescription Medications: omeprazole 20 mg capsule,delayed release: Take 1 capsule by mouth once a day for 20 days, dispense 20 capsule. Refills 0. Pharmacy: [facility] [phone] [place] [address]. Follow-up: Follow up with your doctor in two days. You have been given the following additional information: 1 of 11 Discharge Instructions Unknown Causes of Abdominal Pain (Female) Epigastric Pain (Uncertain Cause) High Blood Pressure, To Be Confirmed, No Treatment Gastritis (Adult) Patient Signature Facility Marketing Support Coordinator Date/Time General Instructions with ExitWriter [address] [address] [id number] 05/28/2024 Patient: YOSEF ZARAGOZA Sex: Female : 1990 Age: 33y Thank you for visiting [facility]. You have been evaluated today by Delia Columbus, M.D. for the following condition(s): Principal Diagnosis Abdominal pain. Epigastric abdominal pain of unknown cause. Hypertension. hypertension. INSTRUCTIONS No alcohol. Do not smoke. (your blood pressure was high today I think you need to be put back on your medication. Call your doctor to be seen as soon as possible. Medications as directed. No drugs alcohol or smoking. You may need to have further testing if your symptoms continue.). 2 of 11 Discharge Instructions Prescription Medications: omeprazole 20 mg capsule,delayed release: Take 1 capsule by mouth once a day for 20 days, dispense 20 capsule. Refills 0. Pharmacy: [facility] [phone] [place] [address]. Follow-up: Follow up with your doctor in two days. ADDITIONAL INFORMATION Unknown Causes of Abdominal Pain (Female) The exact cause of your belly (abdominal) pain is not clear. This does not mean that this is something to worry about. Everyone likes to know the exact cause of the problem. But sometimes with belly pain, there is no clear-cut cause, and this could be a good thing. The good news is that your symptoms can be treated, and you will feel better. Your condition does not seem serious now. But sometimes the signs of a serious problem may take more time to appear. For this reason, it is important for you to watch for any new symptoms, problems, or worsening of your condition. 3 of 11 Discharge Instructions Over the next few days, the abdominal pain may come and go. Or it may be constant. Other common symptoms can include nausea and vomiting. Sometimes it can be difficult to tell if you feel nauseous. You may just feel bad and not connect that feeling to nausea. Constipation, diarrhea, and a fever may go along with the pain. The pain may continue even if treated correctly over the following days. Depending on how things go, sometimes the cause can become clear and may need more or different treatment. Additional evaluations, medicines, or tests may also be needed. Home care Your healthcare provider may prescribe medicine for pain, symptoms, or an infection. Follow the healthcare provider's instructions for taking these medicines. General care Rest as much as you can until your next exam. No strenuous activities. Try to find positions that ease discomfort. A small pillow placed on the abdomen may help relieve pain. Something warm on your abdomen (such as a heating pad) may help, but be careful not to burn yourself. Diet Don't force yourself to eat, especially if having cramps, vomiting, or diarrhea. Water is important so you don't get dehydrated. Soup may also be good. Sports drinks may also help, especially if they are not too acidic. Don't drink sugary drinks as this can make things worse. Take liquids in small amounts. Don't guzzle them. Caffeine sometimes makes the pain and cramping worse. Don't take dairy products if you have vomiting or diarrhea. Don't eat large amounts at a time. Wait a few minutes between bites. Eat a diet low in fiber (called a low-residue diet). Foods allowed include refine (more content not included)... [facility] Clinical Note 11-17-2023 Note Date & Type Note Facility 11-17-2023 Note . MICRO - Microbiology PROCEDURE: Affirm Pathogens DNA Direct Probe [*1] SOURCE: Vaginal Fluid BODY SITE: Vagina COLLECTED DATE/TIME: 11/15/2023 14:50 EDT RECEIVED DATE/TIME: 11/16/2023 22:50 EDT START DATE/TIME: 11/16/2023 22:50 EDT FREE TEXT SOURCE: FINAL REPORTS Final Report [] Verified Date/Time/Personnel: 11/17/2023 12:18 EDT Inés species DNA Probe Negative Gardnerella vaginalis DNA Probe Negative Trichomonas vaginalis DNA Probe Negative Performing Locations *1: This test was performed at: [address], [facility] , [facility] ([place] Clinical Note 12-14-2022 Note Date & Type Note Facility 12-14-2022 Note . MICRO - Microbiology PROCEDURE: Affirm Pathogens DNA Direct Probe [*1] SOURCE: Vaginal Fluid BODY SITE: Vagina COLLECTED DATE/TIME: 12/13/2022 11:00 EDT RECEIVED DATE/TIME: 12/13/2022 20:14 EDT START DATE/TIME: 12/13/2022 20:14 EDT FREE TEXT SOURCE: FINAL REPORTS Final Report [] Verified Date/Time/Personnel: 12/14/2022 13:18 EDT Gardnerella vaginalis DNA Probe Positive Trichomonas vaginalis DNA Probe Negative Inés species DNA Probe Negative Performing Locations *1: This test was performed at: [facility], [address] [place] [address], [facility] , [facility] ([place]) Summary Purpose Family History No Family History Records FoundNo Family History Records FoundNo Family History Records Found Advance Directives No Advanced Directives Records FoundNo Advanced Directives Records FoundNo Advanced Directives Records Found Additional Source Comments INFORMATION SOURCE (unrecogn ized section and content) DATE CREATED AUTHOR 02/28/2019 [facility] DATE CREATED AUTHOR AUTHOR'S ORGANIZ ATION 11/22/2023 [facility] ([place]) DATE CREATED AUTHOR AUTHOR'S ORGANIZ ATION 06/03/2024 [facility] FOR RECORDS PERTAINING TO PATIENTS WHO ARE OR HAVE BEEN ENROLLED IN A CHEMICAL DEPENDENCY/SUBSTANCEABUSE PROGRAM, SOME INFORMATION MAY BE OMITTED. This clinical summary was aggregated from multiple sources. Caution should be exercised in using it in the provision of clinical care. This summary normalizes information from multiple sources, and as a consequence, information in this document may materially change the coding, format and clinical context of patient data. In addition, data may be omitted in some cases. CLINICAL DECISIONS SHOULD BE BASED ON THE PRIMARY CLINICAL RECORDS. [employer] [facility]. provides no warranty or guarantee of the accuracy or completeness of information in this document.
--- NOTE | 2025-01-05 17:04 | RAD_ITS ---
PROCEDURE: THORACIC SPINE 3 VIEWS; LUMBAR SPINE 2 OR 3 VIEWS 01/05/2025 REASON FOR EXAM: INJURY/PAIN TECHNIQUE: THORACIC SPINE 3 VIEWS; LUMBAR SPINE 2 OR 3 VIEWS COMPARISON: None. FINDINGS: No evidence of acute fracture or subluxation. Alignment is anatomic. Multilevel spondylotic changes with varying degrees of disc space narrowing, endplate sclerosis and anterior osteophytosis, and hypertrophic facet arthropathy. Visualized lung brooks are clear. Grossly unremarkable soft tissues. Right upper abdominal cholecystectomy surgical clips. RAD/Thoracic Spine 3 Views IMPRESSION: No evidence of acute thoracolumbar spine fracture or malalignment. Multilevel spondylotic changes as described. Reading Location: [id number]
--- NOTE | 2025-01-05 17:04 | RAD_ITS ---
PROCEDURE: RIGHT RIBS UNI MIN 3V W/PA CHEST 01/05/2025 REASON FOR EXAM: FALL TECHNIQUE: Frontal view of the chest and right rib series radiographs. COMPARISON: None. FINDINGS: Lungs/Pleura: Clear. No pneumothorax or pleural effusion. Heart/Mediastinum: Borderline enlarged. Bones/Soft tissues: No acute fracture or dislocation is appreciated. Multilevel degenerative changes of the spine. Right upper abdominal cholecystectomy surgical clips. RAD/Ribs Uni Min 3V w/PA Chest IMPRESSION: No acute cardiopulmonary disease. No acute fracture appreciated. Reading Location: [id number]
--- NOTE | 2025-01-05 17:04 | RAD_ITS ---
PROCEDURE: THORACIC SPINE 3 VIEWS; LUMBAR SPINE 2 OR 3 VIEWS 01/05/2025 REASON FOR EXAM: INJURY/PAIN TECHNIQUE: THORACIC SPINE 3 VIEWS; LUMBAR SPINE 2 OR 3 VIEWS COMPARISON: None. FINDINGS: No evidence of acute fracture or subluxation. Alignment is anatomic. Multilevel spondylotic changes with varying degrees of disc space narrowing, endplate sclerosis and anterior osteophytosis, and hypertrophic facet arthropathy. Visualized lung brooks are clear. Grossly unremarkable soft tissues. Right upper abdominal cholecystectomy surgical clips. RAD/Lumbar Spine 2 or 3 Views IMPRESSION: No evidence of acute thoracolumbar spine fracture or malalignment. Multilevel spondylotic changes as described. Reading Location: [id number]
[2025-01-05 18:30] VITALS: BP 198/112; PULSE 77; RESP 18; O2SAT 100
[2025-01-05 18:31] VITALS: BP 149/139
--- NOTE | 2025-01-05 18:36 | ED.RN ---
pt pleasant, appreciative of care. pads given for menstrual cycle.
== END 2025-01-05 18:46 | disposition home or self-care (01) ==
PROVIDERS: Emergency Provider Emergency Medicine; Visit Provider Emergency Medicine
DX: S20.211A Contusion of right front wall of thorax, initial encounter (principal); I10 Essential (primary) hypertension; W01.198A Fall on same level from slipping, tripping and stumbling with subsequent striking against other object, initial encounter; Y92.89 Other specified places as the place of occurrence of the external cause; Z79.899 Other long term (current) drug therapy; F17.200 Nicotine dependence, unspecified, uncomplicated; Z90.49 Acquired absence of other specified parts of digestive tract
CPT/HCPCS: 71101; 72072; 72100; 96374; 96375; 99285; A4216